=== PATIENT | male | born 1950 | race African-American/Black ===

== ENCOUNTER 2021-10-15 09:25 | Emergency (ER) | payer OTHER ==
[~2021-10-15] VITALS: Ht 185.4 cm; Wt 109.0 kg
[2021-10-15 09:30] VITALS: BP 109/63
[2021-10-15] MEDS ORDERED: SODIUM CHLORIDE 0.9% 1,000 ML IV ONE (09:45)
[2021-10-15 09:59] LABS: EOSINOPHILS % 2.1 % (0.0-5.0); HEMOGLOBIN. 7.4 g/dL (14.0-18.0); LYMPHOCYTES % 12.9 % (20.0-50.0); MEAN CORPUSCULAR HEMOGLOBIN 28.2 pg (28.0-32.0); MEAN PLATELET VOLUME 7.7 fl (7.4-10.4); MONOCYTES % 8.8 % (2.0-8.0); NEUTROPHILS % 75.2 % (40.0-76.0); PLATELET 271 x1000/uL (130-400); RED BLOOD CELL COUNT 2.62 mill/uL (4.7-6.1); RED CELL DISTRIBUTION WIDTH 18.2 % (11.6-14.6)
[2021-10-15 10:12] LABS: CHLORIDE 102 mEq/L (98-107)
== END 2021-10-15 10:41 | disposition left against medical advice (07) ==
LOC: ER 09:57 → CANBEDREQ 21:44
DX: R55 Syncope and collapse (principal); I10 Essential (primary) hypertension; E11.9 Type 2 diabetes mellitus without complications
CPT/HCPCS: 36415; 71045; 80053; 83605; 84145; 84484; 85025; 93005; 99285; J7030